=== PATIENT | female | born 1975 | race Two or more races ===

== ENCOUNTER 2019-11-06 13:16 | Observation (INO) | payer MEDICAID | END 2019-11-06 17:50 | disposition home or self-care (01) | LOC: 8 EST LDRP 13:16 | PROVIDERS: ADMIT Obstetrics & Gynecology; ATTEND Obstetrics & Gynecology | DX: O46.93 Antepartum hemorrhage, unspecified, third trimester (principal); O09.523 Supervision of elderly multigravida, third trimester; Z3A.40 40 weeks gestation of pregnancy | CPT/HCPCS: 76805; 76818; 99281; G0378 ==